=== PATIENT | female | born 1960 | race Caucasian/White ===

== ENCOUNTER 2021-12-08 05:46 | Emergency (ER) | payer OTHER, SELFPAY ==
--- NOTE | ~2021-12-08 | CT_ITS ---
EXAMINATION: CT abdomen pelvis w con DATE: 12/08/2021 08:04 INDICATION: Epigastric pain TECHNIQUE: Computed tomography (CT) of the abdomen and pelvis was performed with 75 mL Omnipaque-300 intravenous contrast. Automated exposure control and iterative reconstruction technique were employed . The dose-length product was 721.85 mGy-cm. COMPARISON: None FINDINGS: Lung bases are clear. Heart size is normal. No pericardial or pleural effusion. Small sliding-type hi atal hernia. Liver, gallbladder, spleen, pancreas, bilateral adrenal glands and kidneys are normal. B owels including the appendix are normal. Fibroid uterus with larger 3.3 cm hypodense fibroid and smal ler 1.5 cm hypodense fibroid. Bladder is normal. No free intraperitoneal gas or fluid. No pathologica lly enlarged abdominal or pelvic lymphadenopathy. Mild thoracolumbar spondylosis. Mild to moderate bi lateral hip osteoarthritis. IMPRESSION: 1. No acute intra-abdominal/pelvic process. 2. Fibroid uterus. 3. Small sliding-type hiatal hernia. Reviewed, dictated and finalized at location A.
[2021-12-08 05:53] VITALS: BP 212/101; PULSE 50; RESP 18; TEMP 36.5; O2SAT 100
[2021-12-08 06:11] LABS: Basophils Percent Auto 0.4 % (0.2-1.2); Eosinophils Absolute Auto 0.2 K/mm3 (0-0.3); Eosinophils Percent Auto 2.2 % (0-4.4); Hematocrit 39.9 % (37.0-47.0); Hemoglobin 13.1 g/dL (12.0-15.0); Immature Granulocyte Absolute 0.02 K/mm3 (0.00-0.031); Immature Granulocyte Percent A 0.3 % (0-0.5); Lymphocytes Absolute Auto 1.58 K/mm3 (0.9-3.2); Lymphocytes Percent Auto 21.4 % (18.3-44.2); Mean Corpuscular HGB Conc 32.8 g/dl (32-36); Mean Corpuscular Hemoglobin 28.4 pg (26-34); Mean Corpuscular Volume 86.4 fl (80-100); Mean Platelet Volume 9.9 fl (7.4-10.4); Monocytes Absolute Auto 0.7 K/mm3 (0.1-0.6); Monocytes Percent Auto 9.2 % (2.6-8.5); Neutrophils Absolute Auto 4.9 K/mm3 (1.3-6.7); Neutrophils Percent Auto 66.5 % (45.5-73.1); Platelet Count Result 235 k/mm3 (150-375); Red Blood Count 4.62 M/mm3 (4.2-5.4); Red Cell Distribution Width 13.3 % (11.5-14.5); White Blood Count 7.4 K/mm3 (4.5-10.0)
[2021-12-08] MEDS: SODIUM CHLORIDE 0.9% IV 1,000 ML 999 ML IV CONT (06:11)
[2021-12-08] MEDS: ONDANSETRON INJ 4 MG/2 ML VIAL IV PUSH (06:11)
[2021-12-08] MEDS: MAG HYDROX/AL HYDROX/SIMETH 30 ML UDC PO (06:14)
[2021-12-08] MEDS: LIDOCAINE HCL 2% VISC SOLN 15 ML UDC 20 ML PO (06:14)
[2021-12-08 06:22] LABS: Lactic Acid Reflex 2.1 mmol/L (0.7-2.0); Lipase 177 U/L (23-300)
[2021-12-08 06:29] LABS: Prothrombin Time 12.6 Seconds (11.1-14.7)
--- NOTE | 2021-12-08 07:28 | ED.ABDPAIN ---
HPI - Abdominal Pain General Chief Complaint: Abdominal Pain <Michael Martinez MD - Last Filed: 12/08/21 08:14> Stated Complaint: Abdominal pain <Michael Martinez MD - Last Filed: 12/08/21 08:14> Time Seen by Provider: 12/08/21 05:52 <Michael Martinez MD - Last Filed: 12/08/21 08:14> Source: patient <Michael Martinez MD - Last Filed: 12/08/21 08:14> History of Present Illness HPI narrative: Patient presents with epigastric pain. Short symptoms started this morning describes a squeezing sensation in her upper abdomen that is constant, radiates to her back improves with walking around she denies nausea denies vomiting diarrhea constipation denies any urinary symptoms fevers. Denies similar symptoms in the past. <Michael Martinez MD - Last Filed: 12/08/21 08:14> Related Data Allergies/Adverse Reactions: Allergies Allergy/AdvReac Type Severity Reaction Status Date / Time No Known Allergies Allergy Verified 12/08/21 05:59 <Michael Martinez MD - Last Filed: 12/08/21 08:14> Review of Systems Review of Systems: CONSTITUTIONAL: Denies fever, chills, or sweats. EYES: Denies visual changes, redness, or discharge. ENT: Denies rhinorrhea, congestion, sore throat, or otalgia. CARDIOVASCULAR: Denies chest pain, palpitations, or edema. RESPIRATORY: Denies cough or dyspnea. GASTROINTESTINAL: Denies vomiting, or diarrhea. GENITOURINARY: Denies dysuria or hematuria. SKIN: Denies rash or itching. MUSCULOSKELETAL: Denies back pain, joint pain, or myalgia. NEUROLOGIC: Denies headache, numbness, dizziness, or weakness. PSYCHIATRIC: Denies anxiety or depression. <Michael Martinez MD - Last Filed: 12/08/21 08:14> All systems reviewed & are unremarkable except as noted in HPI and below <Michael Martinez MD - Last Filed: 12/08/21 08:14> Exam Narrative: GENERAL: Well-appearing, well-nourished, and in no acute distress. HEAD: Normocephalic, atraumatic. EYES: PERRLA and EOMI. ENT: Nares clear, no rhinorrhea or epistaxis. Mucous membranes moist. NECK: Supple. No masses. No JVD ABDOMEN: Moderate tenderness palpation of the upper abdomen soft, nondistended EXTREMITIES: Normal range of motion. No edema. SKIN: Warm, dry, no rash. NEURO: No focal deficits. Alert and oriented x3. PSYCH: Normal mood and affect. <Michael Martinez MD - Last Filed: 12/08/21 08:14> Course Course Emergency Course: Care turned over to myself at shift change. Seen and evaluated myself. Agree with initial H&P Patient states that they are feeling much better at this time. States abdominal pain has resolved. Repeat abdominal exam shows the patient's abdomen to be soft and nontender. Discussed with patient results of workup and diagnosis. Discussed need for follow-up with primary care physician, reasons to return to the emergency department in proper use of medication. Patient understands and agrees to current treatment plan <Mahamed Diaz DO - Last Filed: 12/08/21 08:56> Reevaluation(s) Reevaluation #1: Results thus far reviewed with patient she is pending CT imaging patient signed out to Dr. Diaz pending imaging. <Michael Martinez MD - Last Filed: 12/08/21 08:14> Date: 12/08/21 <Michael Martinez MD - Last Filed: 12/08/21 08:14> Time: 08:13 <Michael Martinez MD - Last Filed: 12/08/21 08:14> Vital Signs Vital signs: Vital Signs Temperature 97.7 F 12/08/21 05:53 Pulse Rate 50 L 12/08/21 05:53 Respiratory Rate 18 12/08/21 05:53 Blood Pressure 212/101 H 12/08/21 05:53 Pulse Oximetry 100 12/08/21 05:53 Temperature 97.7 F 12/08/21 05:53 Pulse Rate 56 L 12/08/21 08:22 Respiratory Rate 18 12/08/21 08:22 Blood Pressure 176/69 H 12/08/21 08:22 Pulse Oximetry 99 12/08/21 08:22 <Michael Martinez MD - Last Filed: 12/08/21 08:14> Vital Signs Temperature 97.7 F 12/08/21 05:53 Pulse Rate 50 L 12/08/21 05:53 Respiratory Rate 18 12/08/21 05:53 B
[2021-12-08 07:38] LABS: Alanine Aminotransferase 19 U/L (6-35); Alkaline Phosphatase 100 U/L (38-126); Anion Gap 10 mmol/L (8-16); Aspartate Amino Transferase 25 U/L (14-36); Bilirubin,Total 0.2 mg/dL (0.2-1.3); Blood Urea Nitrogen 14 mg/dL (7-17); Calcium 8.6 mg/dL (8.4-10.2); Carbon Dioxide 23 mmol/L (22-30); Chloride 106 mmol/L (98-107); Estimated CRCL calculation 64 ml/min; Estimated Glomerular Filt Rate > 60; Glucose 124 mg/dL (65-110); Potassium 3.5 mmol/L (3.4-5.0); Sodium 139 mmol/L (137-145)
[2021-12-08] MEDS: MORPHINE SULFATE (*CRX) 4 MG/ML INJ IV PUSH (08:19)
[2021-12-08] MEDS: KETOROLAC 15 MG/ML VIAL (*BKC) IV PUSH (08:19)
[2021-12-08 08:22] VITALS: BP 176/69; PULSE 56; RESP 18; O2SAT 99
[2021-12-08 08:30] LABS: Appearance Urine Clear (Clear); Bilirubin Urine Negative (Negative); Color Urine Yellow (Yellow); Glucose Urine UA Negative (Negative); Ketones Urine Negative (Negative); Leukocyte Esterase Ur Negative LEU/UL (Negative); Nitrate Urine Negative (Negative); Protein Urine Negative (Negative); Urobilinogen Urine 0.2 mg/dL (<2.0); pH Urine 7.5 (5.0-9.0)
[2021-12-08 08:34] LABS: Add Urine Microscopic? YES; Blood Urine Trace-Intact (Negative)
[2021-12-08 08:36] LABS: RBC Urine 0-2 /hpf (0-2); Squamous Epithelial Cell Urine Rare /hpf (Few)
[2021-12-08 09:08] LABS: Reflex Lactic Acid Yes or No Add Lactic
== END 2021-12-08 09:11 | disposition home or self-care (01) ==
PROVIDERS: Emergency Medicine; Emergency Provider Emergency Medicine
DX: R10.10 Upper abdominal pain, unspecified (principal)
CPT/HCPCS: 36415; 74177; 80053; 81001; 83605; 83690; 85025; 85610; 96361; 96374; 96375; 99284; A9270; J1885; J2270; J2405; J7030; Q9967

== ENCOUNTER 2022-11-27 16:31 | Emergency (ER) | payer OTHER, SELFPAY ==
[2022-11-27 16:47] VITALS: BP 128/71; PULSE 76; RESP 18; TEMP 37.7; O2SAT 98
--- NOTE | 2022-11-27 16:53 | ED.URI ---
HPI - URI/Sore Throat General Chief Complaint: Upper Respiratory Infection Stated Complaint: Sore Throat,Body Aches,Shortness of Breath,COVID+ Time Seen by Provider: 11/27/22 16:54 Source: patient, family, RN notes reviewed and old records reviewed Mode of arrival: ambulatory Limitations: no limitations History of Present Illness HPI Narrative: 62year old female accompanied by spouse who presents to express care with complaints of COVID symptoms of cough,lethargy, fevers, body aches,which started on Thursday. Patient reports that they had one home COVID test left and she took it Thursday and it was positive, she reports that has had symptoms since Thursday morning. Patient reports that she has been taking Ibuprofen for her symptoms, denies any shortness of breath. Patient reports that she has been COVID and Flu vaccinated. MD elicited complaint: cough and sore throat Pertinent past history: other (Covid 19 in ) Onset (ago): day(s) (2) Pain scale (0-10): 3 Able to tolerate fluids by mouth: Yes Associated symptoms: fever, chills, myalgias, headache, rhinorrhea, nasal congestion, sore throat and cough Treatments prior to arrival: ibuprofen Related Data Home Medications Medication Instructions Recorded Confirmed atorvastatin 40 mg tablet 40 mg PO DAILY 11/27/22 11/27/22 levothyroxine 25 mcg tablet 25 mcg PO DAILY 11/27/22 11/27/22 (Synthroid) omeprazole 40 mg capsule,delayed 40 mg PO DAILY 11/27/22 11/27/22 release sertraline 50 mg tablet 50 mg PO DAILY 11/27/22 11/27/22 valacyclovir 1 gram tablet 1,000 mg PO DAILY 11/27/22 11/27/22 Allergies Allergy/AdvReac Type Severity Reaction Status Date / Time No Known Allergies Allergy Verified 11/27/22 16:56 Review of Systems Review of Systems: CONSTITUTIONAL: malaise, chills, sweats, or fever. EYES: Denies visual changes, redness, or discharge. ENT: Reports rhinorrhea, congestion, sinus pain, no otalgia positive for sore throat. CARDIOVASCULAR: Denies chest pain, palpitations, or edema. RESPIRATORY: Reports cough.? Denies dyspnea. GASTROINTESTINAL: Denies abdominal pain, nausea, vomiting, diarrhea SKIN: Denies rash or itching. MUSCULOSKELETAL: Reports myalgia. NEUROLOGIC: reports headache. All systems reviewed & are unremarkable except as noted in HPI and below PMFSH Comments At time of signature, agree with nursing past medical, surgical, social and family history. There is no relevant family history pertinent to the presenting complaint Exam Narrative: GENERAL: Well-appearing, well-nourished, and in no acute distress. HEAD: Normocephalic EYES: PERRLA, conjunctivae clear ENT: Nares clear, turbinates edematous and erythematous, clear discharge. Mucous membranes moist. TM pearly awad with dull light reflex bilaterally; no tragal tenderness. Oropharynx erythematous without lesions. Tonsils not enlarged and without exudate, no drooling, no hoarseness, no trismus, uvula midline. NECK: Supple. No lymphadenopathy CHEST: Clear to auscultation, breath sounds equal. No wheezing, rhonchi, rales, or stridor. No respiratory distress, speaks in full sentences. HEART: Regular rate and rhythm. No murmur heard. SKIN: Warm, dry, no rash. NEURO: Alert and oriented x3. PSYCH: Normal mood and affect Course Course Emergency Course: Patient is aware of diagnosis, understands and agrees to treatment plan.? Anticipatory guidance given.? Patient agrees to follow-up as directed and is aware of reasons to seek care at the emergency department. Portions of this record may have been created with voice recognition software Level of Care: Express Care Visit Vital Signs Vital signs: Vital Signs Oxygen Delivery Room Air 11/27/22 16:44 Temperature 37.7 C H 11/27/22 16:47 Pulse Rate 76 11/27/22 16:47 Respiratory Rate 18 11/27/22 16:47 Blood Pressure 128/71 11/27/22 16:47 Pulse Oximetry 98 11/27/22 16:47 Oxygen Delivery
== END 2022-11-27 17:25 | disposition home or self-care (01) ==
PROVIDERS: Emergency Provider Registered Nurse
DX: U07.1 COVID-19 (principal); E78.00 Pure hypercholesterolemia, unspecified; E03.9 Hypothyroidism, unspecified
CPT/HCPCS: 99211; G0463

== ENCOUNTER 2023-03-17 02:41 | Observation (INO) | payer OTHER, SELFPAY ==
[2023-03-17] VITALS (31 sets, daily range): BP systolic 110–178; BP diastolic 68–92; PULSE 55–96; RESP 9–20; TEMP 35.8–37.2; O2SAT 95–100; BMI 31.4
--- NOTE | ~2023-03-17 | US_ITS ---
Limited Abdominal Sonogram: Real-time sonographic imaging of the right upper quadrant was performed. Clinical History: Abnormal LFTs, cholecystitis Findings: The liver appears mildly echogenic, with no evidence of mass lesion or bile duct dilatatio n. Main portal vein demonstrates normal direction of flow. The gallbladder is partially distended, wi th multiple shadowing gallstones present. No definite gallbladder wall thickening. The common bile du ct measures 5 mm. The visualized pancreas, aorta, and IVC are unremarkable. Impression: Cholelithiasis. No definite sonographic evidence for acute cholecystitis. Consider HIDA scan as indic ated. Fatty infiltration of liver. Reviewed, dictated and finalized at location . Impression: Cholelithiasis. No definite sonographic evidence for acute cholecystitis. Consi hayden HIDA scan as indicated. Fatty infiltration of liver.
--- NOTE | ~2023-03-17 | CT_ITS ---
CT of the Abdomen and Pelvis: Indication: Abdominal pain Technique: 2.5 mm axial scans were obtained through the abdomen and pelvis following intravenous adm inistration of 100 cc of Omnipaque 350. Dose reduction technique was used on this scan by utilizing a utomated exposure control and iterative reconstruction technique. The dose-length product (DLP) was 6 34.75 mGy-cm. COMPARISON: 12/08/2021 Findings: Scans through the lung bases are unremarkable. Gallbladder is minimally distended with minimal central intrahepatic biliary prominence. Possible mil d gallbladder wall thickening. The spleen, pancreas, adrenals and kidneys are within normal limits. No evidence of aortic aneurysm. No lymphadenopathy. No bowel obstruction or bowel wall thickening. There is no evidence to suggest acute appendicitis. Images through the pelvis were performed. Urinary bladder unremarkable. Cystic lesion in the uterus v ersus left ovary, with adjacent enhancing irregular nodule is similar to prior exam (axial image 144 for example).. No ascites. Impression: Mild gallbladder wall thickening and minimal central intrahepatic biliary prominence. Correlate with LFTs. Consider MR/MRCP to evaluate for stone or other biliary obstructive process. Stable adnexal lesion with cystic component and adjacent enhancing nodularity, most likely atypical f ibroid. Reviewed, dictated and finalized at location M. Impression: Mild gallbladder wall thickening and minimal central intrahepatic biliary promi nence. Correlate with LFTs. Consider MR/MRCP to evaluate for stone or other mansi iary obstructive process. Stable adnexal lesion with cystic component and adjacent enhancing nodularity, most likely atypical fibroid.
--- NOTE | ~2023-03-17 | XR_ITS ---
EXAMINATION: XR cholangiogram surg 1st inj DATE: 03/17/2023 14:13 INDICATION: Laparoscopic cholecystectomy TECHNIQUE: 72 fluoroscopic images of the right upper quadrant were obtained during intraoperative cho langiography performed by the surgeon. I was not present in the operating room. Fluoroscopy exposure time was 12.1 seconds. COMPARISON: None. FINDINGS: No stones or stricture of the common bile duct are identified. IMPRESSION: 1. No common bile duct stone or stricture identified. Please refer to procedure note for full details . Reviewed, dictated and finalized at location A. IMPRESSION: 1. No common bile duct stone or stricture identified. Please refer to procedure note for full details.
--- NOTE | 2023-03-17 02:43 | ECG_ITS ---
Measurements Intervals [place] Rate: 53 P: 43 CA: 163 QRS: 68 QRSD: 98 T: 76 QT: 422 QTc: 398 Interpretive Statements SINUS BRADYCARDIA OTHERWISE WITHIN NORMAL LIMITS NO PREVIOUS ECG AVAILABLE FOR COMPARISON Electronically Signed On 03-17-2023 12:05:43 CDT by Mikey Luis M.D.
[2023-03-17 04:35] LABS: Basophils Percent Auto 0.2 % (0.2-1.2); Eosinophils Absolute Auto 0.1 K/mm3 (0-0.3); Eosinophils Percent Auto 0.4 % (0-4.4); Immature Granulocyte Absolute 0.04 K/mm3 (0.00-0.031); Immature Granulocyte Percent A 0.3 % (0-0.5); Lymphocytes Absolute Auto 0.96 K/mm3 (0.9-3.2); Lymphocytes Percent Auto 7.4 % (18.3-44.2); Mean Corpuscular HGB Conc 32.5 g/dl (32-36); Mean Corpuscular Hemoglobin 28.2 pg (26-34); Mean Corpuscular Volume 86.8 fl (80-100); Mean Platelet Volume 10.2 fl (7.4-10.4); Monocytes Absolute Auto 0.8 K/mm3 (0.1-0.6); Neutrophils Percent Auto 85.7 % (45.5-73.1); Platelet Count Result 234 k/mm3 (150-375); Red Blood Count 4.61 M/mm3 (4.2-5.4); Red Cell Distribution Width 13.6 % (11.5-14.5); White Blood Count 12.9 K/mm3 (4.5-10.0)
[2023-03-17 04:46] LABS: Alanine Aminotransferase 244 U/L (6-35); Albumin Level 4.2 g/dL (3.5-5.1); Alkaline Phosphatase 182 U/L (38-126); Anion Gap 7 mmol/L (8-16); Aspartate Amino Transferase 444 U/L (14-36); Bilirubin,Total 0.7 mg/dL (0.2-1.3); Blood Urea Nitrogen 13 mg/dL (7-17); Calcium 9.1 mg/dL (8.4-10.2); Carbon Dioxide 28 mmol/L (22-30); Chloride 104 mmol/L (98-107); Estimated CRCL calculation 63 ml/min; Estimated Glomerular Filt Rate > 60; Glucose 164 mg/dL (65-110); Lipase 188 U/L (23-300); Potassium 3.8 mmol/L (3.4-5.0); Sodium 139 mmol/L (137-145)
[2023-03-17] MEDS: MORPHINE SULFATE (*CRX) 4 MG/ML INJ IV PUSH (04:51)
[2023-03-17] MEDS: SODIUM CHLORIDE 0.9% IV 1,000 ML 999 ML IV CONT (04:51)
[2023-03-17] MEDS: ONDANSETRON INJ 4 MG/2 ML VIAL IV PUSH (04:51)
[2023-03-17] MEDS: PANTOPRAZOLE SODIUM IV 40 MG VIAL IV PUSH ×2 (04:51→12:14)
[2023-03-17 05:11] LABS: Troponin I < 0.012 ng/mL (0.000-0.034)
[2023-03-17 05:16] LABS: Lactic Acid Reflex 1.8 mmol/L (0.7-2.0)
--- NOTE | 2023-03-17 07:40 | ED.GENADULT ---
HPI - General Adult General Chief complaint: Abdominal Pain Stated complaint: epigastric pain Time Seen by Provider: 03/17/23 04:32 History of Present Illness HPI narrative: Patient 63-year-old female who presents emerged department chief complaint of abdominal pain. Patient reports this evening started having pain in the epigastric region reports the pain is not improved by anything patient reports that she had an episode of vomiting in the emergency department Related Data Home Medications Medication Instructions Recorded Confirmed atorvastatin 40 mg tablet 40 mg PO DAILY 11/27/22 11/27/22 levothyroxine 25 mcg tablet 25 mcg PO DAILY 11/27/22 11/27/22 (Synthroid) omeprazole 40 mg capsule,delayed 40 mg PO DAILY 11/27/22 11/27/22 release sertraline 50 mg tablet 50 mg PO DAILY 11/27/22 11/27/22 valacyclovir 1 gram tablet 1,000 mg PO DAILY 11/27/22 11/27/22 Allergies Allergy/AdvReac Type Severity Reaction Status Date / Time No Known Allergies Allergy Verified 03/17/23 04:06 Review of Systems Review of Systems: A 10 system review of systems was completed on the patient and is negative except for what is stated in the HPI. Nursing and ancillary documentation was reviewed. Exam Narrative: GENERAL: Well-appearing, well-nourished, and in no acute distress. HEAD: Normocephalic, atraumatic. EYES: PERRLA and EOMI. ENT: Nares clear, no rhinorrhea or epistaxis. Mucous membranes moist. NECK: Supple. CHEST: Clear to auscultation. No respiratory distress. HEART: Regular rate and rhythm. No murmur heard. Normal peripheral pulses. ABDOMEN: Soft, tenderness palpation the epigastric region, nondistended, normal active bowel sounds. EXTREMITIES: Normal range of motion. No edema. SKIN: Warm, dry, no rash. NEURO: No focal deficits. Alert and oriented x3. PSYCH: Normal mood and affect. Course Vital Signs Vital signs: Vital Signs Temperature 37.0 C 03/17/23 02:49 Pulse Rate 56 L 03/17/23 02:49 Respiratory Rate 16 03/17/23 02:49 Blood Pressure 153/68 H 03/17/23 02:49 Pulse Oximetry 100 03/17/23 02:49 Oxygen Delivery Room Air 03/17/23 02:49 Temperature 37.0 C 03/17/23 02:49 Pulse Rate 62 03/17/23 07:19 Respiratory Rate 15 03/17/23 07:19 Blood Pressure 114/71 03/17/23 07:19 Pulse Oximetry 99 03/17/23 07:19 Oxygen Delivery Room Air 03/17/23 04:04 Medical Decision Making MDM Narrative Medical decision making narrative: Differential diagnosis includes cholelithiasis, cholecystitis choledocholithiasis, biliary ductal dilatation obstruction, gastritis, pancreatitis Laboratory studies were obtained which showed a white count of 12.9 electrolytes showed a bilirubin of 0.7 AST was 444 ALT of 244 lipase was [address] scan of the abdomen pelvis showed Mild gallbladder wall thickening and minimal central intrahepatic biliary prominence. Correlate with LFTs. Consider MR/MRCP to evaluate for stone or other biliary obstructive process. Stable adnexal lesion with cystic component and adjacent enhancing nodularity, most likely atypical fibroid. Case was discussed with Dr. Rain who will consult Dr. Stevenson who will consult and also talked with Dr. Yoon who will admit the patient Vital Signs Vital Signs: Vital Signs Temperature 37.0 C 03/17/23 02:49 Pulse Rate 56 L 03/17/23 02:49 Respiratory Rate 16 03/17/23 02:49 Blood Pressure 153/68 H 03/17/23 02:49 Pulse Oximetry 100 03/17/23 02:49 Oxygen Delivery Room Air 03/17/23 02:49 Temperature 37.0 C 03/17/23 02:49 Pulse Rate 62 03/17/23 07:19 Respiratory Rate 15 03/17/23 07:19 Blood Pressure 114/71 03/17/23 07:19 Pulse Oximetry 99 03/17/23 07:19 Oxygen Delivery Room Air 03/17/23 04:04 Lab Data 03/17/23 04:11 03/17/23 04:11 Labs: Lab Results 03/17/23 03/17/23 Range/Units 04:11 05:01 WBC 12.9 H (4.5-10.0) K/
[2023-03-17] MEDS: SODIUM CHLORIDE 0.9% IV 1,000 ML 125 ML IV CONT (08:05)
--- NOTE | 2023-03-17 09:10 | ADMGEN ---
This patient, Ashley Devries, was admitted to 3 [facility] Surg Room 319-01. Patient/family oriented to hospital policies and general routines including ID bracelet, bed and alarms, visiting hours, pain management, procedures, bathroom and other care routines, personal items, smoking policy, room service/diet, and visiting hours. Information on how to activate the Rapid Response Team has been discussed. Patient/Family are encouraged to report perceived risks to care and to ask questions if they do not understand what they are told or what they should do.
--- NOTE | 2023-03-17 09:54 | PM.CNGS ---
Assessment and Plan Assessment and plan (1) Biliary colic: Code(s): K80.50 - Calculus of bile duct without cholangitis or cholecystitis without obstruction Status: Acute Assessment and Plan: Patient presented with epigastric abdominal pain. Found to have elevated AST, ALT, and mildly elevated alk phos. Total bilirubin normal. CT scan showed mild inflammation of the gallbladder with minimal intrahepatic biliary prominence. No gallstones seen on CT. Her abdominal pain has resolved and she has no abdominal tenderness on exam. Will get a RUQ abdominal ultrasound this morning to further evaluate the gallbladder, bile ducts, and see if there are visible gallstones. GI has also been consulted. Will discuss further treatment options once we have ultrasound results and she has been evaluated by GI. (2) Elevated liver transaminase level: Code(s): R74.01 - Elevation of levels of liver transaminase levels Status: Acute (3) GERD (gastroesophageal reflux disease): Code(s): K21.9 - Gastro-esophageal reflux disease without esophagitis Status: Acute Plan I have discussed the patient's case and plan of care with Dr. Oliver. History of Present Illness Consult details Consult date: 03/17/23 Reason for consult: other (Biliary colic, elevated LFTs) Requesting physician: Pedro Riley MD Narrative: This is a 63-year-old female who presented to the ER early this morning with complaints of epigastric abdominal pain for a few hours. She ate grilled cheese and watermelon last night for dinner and went to bed without any complaints. She woke up around midnight with severe epigastric abdominal pain. No radiating factors. She tried walking without any relief. After a few hours of pain, she decided to present to the ER for evaluation. She had associated nausea and ended up vomiting in the ER. [place] [address], total bilirubin 0.7, AST 444, ALT 244, alk-phos 182, and normal lipase. CT scan of the abdomen and pelvis showed minimal gallbladder distension with minimal central intrahepatic biliary prominence and mild gallbladder wall thickening. No CT evidence of gallstones. She was admitted and made NPO. Our service was consulted for surgical evaluation for possible cholecystitis or biliary colic with elevated liver enzymes. She is now seen on medical floor. She reports having resolution of her abdominal pain since receiving morphine about 5-6 hours ago. She is no longer having any nausea or vomiting. She denies jaundice, dark-colored urine, or acholic stools. She reports having 1 other episode of similar abdominal pain in November of 2021 that brought her into the ER at [place]. She had a CT scan at that time that showed fibroid uterus but no other significant findings and a normal gallbladder. Her LFTs at that time were normal. Review of Systems Review of Systems: All systems reviewed & are unremarkable except as noted in HPI and below Constitutional: Constitutional: Reports no additional constitutional complaints, Denies chills, Denies fatigue and Denies fever(s) Eyes: Eyes: Reports no additional eye complaints ENT: Reports system reviewed and no additional complaints, except as documented and Denies dizziness Cardiovascular: Cardiovascular: Reports no additional cardiovascular complaints, Denies chest pain and Denies leg edema Respiratory: Respiratory: Reports no additional respiratory complaints, Denies cough and Denies dyspnea Gastrointestinal: Gastrointestinal: Reports as per HPI, Reports no additional gastrointestinal complaints, Reports abdominal pain, Denies melena, Denies hematochezia, Denies change in bowel habits, Denies coffee ground emesis, Denies diarrhea, Reports nausea, Reports vomiting and Denies hematemesis Genitourinary: Genitourinary: Reports no additional female genitourinary complaints and Denies dysuria Musculoskeletal: Musculoskeletal: Reports no additional m
--- NOTE | 2023-03-17 12:18 | WPDGICN ---
Assessment and Plan Assessment and plan (1) Biliary colic: Code(s): K80.50 - Calculus of bile duct without cholangitis or cholecystitis without obstruction Status: Acute Assessment and Plan: ultrasound showed cholelithiasis, similar episode 2 years ago normal bile duct size but will get MRCP to assess if bile duct stones she is already feeling better surgery on board (2) Elevated liver transaminase level: Code(s): R74.01 - Elevation of levels of liver transaminase levels Status: Acute Assessment and Plan: monitor probably biliary source riley mrcp (3) Nausea and vomiting in adult: Code(s): R11.2 - Nausea with vomiting, unspecified Status: Acute Assessment and Plan: resolved (4) Cholelithiasis: Code(s): K80.20 - Calculus of gallbladder without cholecystitis without obstruction Status: Acute Assessment and Plan: surgery on board (5) GERD (gastroesophageal reflux disease): Code(s): K21.9 - Gastro-esophageal reflux disease without esophagitis Status: Acute Assessment and Plan: last egd in 2017 (6) Epigastric pain: Code(s): R10.13 - Epigastric pain Status: Acute GI Consult Note Consult date/time: 03/17/23 12:18 Reason for consult: elevated liver enzymes, epigastric pain HPI: Ashley Devries is a 63 year old female with gerd, hyperlipidemia who came to ER with new onset of severe epigastric abdominal pain that started around midnight, finally she came to the hospital, also had episode of nausea and vomiting. [place] [address], total bilirubin 0.7, AST 444, ALT 244, alk-phos 182, and normal lipase.? CT scan of the abdomen and pelvis showed minimal gallbladder distension with minimal central intrahepatic biliary prominence and mild gallbladder wall thickening.? Ultrasound confirmed cholelithiasis, normal bile duct size 5mm. Pain now is gone and feeling much better. She says that about 2 years ago had similar episode with ER evaluation but none since, she did not follow-up with any doctor. Review of Systems Review of Systems: All systems reviewed & are unremarkable except as noted in HPI and below Constitutional: Constitutional: Denies fatigue and Denies fever(s) Eyes: Eyes: Reports no additional eye complaints ENT: Denies dizziness Cardiovascular: Cardiovascular: Denies chest pain and Denies leg edema Respiratory: Respiratory: Denies cough and Denies dyspnea Gastrointestinal: Gastrointestinal: Reports as per HPI, Reports abdominal pain, Denies melena, Denies hematochezia, Denies change in bowel habits, Denies diarrhea, Reports nausea and Reports vomiting Genitourinary: Genitourinary: Denies dysuria Musculoskeletal: Musculoskeletal: Denies abnormal gait and Denies joint swelling Integumentary/Breasts: Skin/Breast: Denies jaundice Neurologic: Denies headache(s) and Denies numbness Psychiatric: Psychiatric: Denies anxiety [facility] Past Medical History Medical History (Updated 03/17/23 @ 12:24 by Panfilo Rice MD) Cholelithiasis Epigastric pain GERD (gastroesophageal reflux disease) Hyperlipidemia Hypothyroidism Nausea and vomiting in adult Surgical History Surgical History History of esophagogastroduodenoscopy (EGD) 2017 for dysphagia with findings of reflux esophagitis History of tubal ligation Family History Family History Sibling Gallbladder disease Social History Social History Smoking packs per day: 1.5 Smoking cigarettes per day: 30.0 Years smoked: 15 Smoking pack-years: 22.50 Smoking status: Never smoker Tobacco type: cigarettes Alcohol intake: never Substance use: never Lack of Transportation: No Lack of Food: Never True Current Housing: [facility]
--- NOTE | 2023-03-17 13:03 | WPDHPUPDATE1 ---
History and Physical Update Update Date/Time: 03/17/23 13:03 History and Physical has been reviewed, including an updated exam of the patient. There are NO changes in the patient's condition. Risks, benefits, and alternatives have been discussed and questions answered. Patient agrees to proceed with procedure.
[2023-03-17] MEDS: LACTATED RINGERS 1,000 ML 30 ML IV CONT ×2 (13:10→14:23)
--- NOTE | 2023-03-17 13:12 | WPDANESEPPF ---
Anes - Initial Pre Proc Eval Procedure: Operation Date: 03/17/23 14:00 Proposed Procedures p Laparoscopic Cholecystectomy with Intra Operative Cholangiogram, Possible Open - Pb Oliver DO Date/Time: 03/17/23 13:12 Surgeon: Lino Yoon MD Pre Op Diagnosis: Biliary Colic/Elevated Liver Transaminases Patient Data Age: 63 Gender: F Height: 1.63 m Weight: 83.2 kg Last Vital Signs Temp 36.9 C 03/17/23 09:00 Pulse 63 03/17/23 09:00 Resp 14 03/17/23 09:00 BP 138/71 03/17/23 09:00 Pulse Ox 99 03/17/23 09:00 O2 Del Method Room Air 03/17/23 09:30 Allergies Allergy/AdvReac Type Severity Reaction Status Date / Time No Known Allergies Allergy Verified 03/17/23 10:36 Home Medications Medication Instructions Recorded Confirmed Type atorvastatin 40 mg tablet 40 mg PO HS 11/27/22 03/17/23 History levothyroxine 25 mcg tablet 25 mcg PO DAILY 11/27/22 03/17/23 History (Synthroid) omeprazole 40 mg capsule,delayed 40 mg PO HS 11/27/22 03/17/23 History release sertraline 50 mg tablet 50 mg PO HS 11/27/22 03/17/23 History valacyclovir 1 gram tablet 1,000 mg PO DAILY PRN Cold Sores 11/27/22 03/17/23 History Laboratory Tests 03/17/23 03/17/23 04:11 05:01 WBC 12.9 H K/mm3 (4.5-10.0) RBC 4.61 M/mm3 (4.2-5.4) Hgb 13.0 g/dL (12.0-15.0) Hct 40.0 % (37.0-47.0) MCV 86.8 fl (80-100) MCH 28.2 pg (26-34) MCHC 32.5 g/dl (32-36) RDW 13.6 % (11.5-14.5) Plt Count 234 k/mm3 (150-375) MPV 10.2 fl (7.4-10.4) Immature Gran % (Auto) 0.3 % (0-0.5) Neut % (Auto) 85.7 H % (45.5-73.1) Lymph % (Auto) 7.4 L % (18.3-44.2) Carver % (Auto) 6.0 % (2.6-8.5) Eos % (Auto) 0.4 % (0-4.4) Baso % (Auto) 0.2 % (0.2-1.2) Lymph # (Auto) 0.96 K/mm3 (0.9-3.2) Carver # (Auto) 0.8 H K/mm3 (0.1-0.6) Eos # (Auto) 0.1 K/mm3 (0-0.3) Baso # (Auto) 0.0 K/mm3 (0.0-0.1) Abs Immat Gran (auto) 0.04 H K/mm3 (0.00-0.031) Absolute Neuts (auto) 11.0 H K/mm3 (1.3-6.7) Absolute Nucleated RBC 0.0 K/mm3 (0.0-0.012) Nucleated RBC % 0.0 % (0.0-0.2) Sodium 139 mmol/L (137-145) Potassium 3.8 mmol/L (3.4-5.0) Chloride 104 mmol/L (98-107) Carbon Dioxide 28 mmol/L (22-30) Anion Gap 7 L mmol/L (8-16) BUN 13 mg/dL (7-17) Creatinine 0.80 mg/dL (0.7-1.0) Estim Creat Clear Calc 63 ml/min Estimated GFR > 60 (59 - ) Glucose 164 H mg/dL (65-110) Lactic Acid 1.8 mmol/L (0.7-2.0) Calcium 9.1 mg/dL (8.4-10.2) Total Bilirubin 0.7 mg/dL (0.2-1.3) AST 444 H U/L (14-36) ALT 244 H U/L (6-35) Alkaline Phosphatase 182 H U/L (38-126) Troponin I < 0.012 ng/mL (0.000-0.034) Total Protein 7.0 g/dL (6.3-8.2) Albumin 4.2 g/dL (3.5-5.1) Lipase 188 U/L (23-300) Patient hx anesthesia problems: none Family hx anesthesia problems: none Results Review: All pre-operative results and documents have been reviewed as part of the pre-operative evaluation. [facility] Past Medical History Medical History (Updated 03/17/23 @ 12:24 by Panfilo Rice MD) Cholelithiasis Epigastric pain GERD (gastroesophageal reflux disease) Hyperlipidemia Hypothyroidism Nausea and vomiting in adult Surgical History Surgical History History of esophagogastroduodenoscopy (EGD) 2017 for dysphagia with findings of reflux esophagitis History of tubal ligation Family History Family History Sibling Gallbladder disease Social History Social History Smoking packs per day: 1.5 Smoking cigarettes per day: 30.0 Years
[2023-03-17] MEDS: ceFAZolin 2 GM/D5W 50 ML 2 GM/50 ML BAG IVPB (13:18)
[2023-03-17] MEDS: BUPIVACAINE/EPINEPHRINE 0.5% 50 ML VIAL 30 ML INFILTRATE (13:47)
--- NOTE | 2023-03-17 14:22 | W.PM.PROC2 ---
Procedure Note - Detailed Date of Procedure 03/17/23 Pre-op Diagnosis Acute calculous cholecystitis, Elevated Liver Transaminases Post-op Diagnosis Same Procedure Performed Laparoscopic cholecystectomy with intraoperative cholangiogram Surgeon Pb Oliver DO Anesthesia General and Local (0.5% bupivacaine) Indications This is a 63-year-old woman who presented to the emergency department this morning with right upper quadrant abdominal pain that started in the middle the night. She had 1 episode like this about a year ago. In the emergency department she was noted to have elevated white blood count and liver enzymes and CT showed evidence of acute cholecystitis. Discussions were made with the patient about treatment options and decision was made to proceed with laparoscopic cholecystectomy with cholangiogram. Findings Laparoscopic cholecystectomy with cholangiogram was performed. The gallbladder appeared slightly dilated, but did not have any significant pericholecystic adhesions. There did appear to be several small stones at the neck of the gallbladder. The cystic duct appeared normal in size. Intraoperative cholangiogram was obtained using Omnipaque contrast. There did not appear to be any filling defects within the cystic duct, common bile duct, or common hepatic duct. There were no signs of obstruction. The gallbladder was then removed and sent to the lab for pathology. Description of Procedure Procedure as well as risks, benefits, and alternatives were discussed with patient. Written consent was obtained and placed in chart prior to procedure. The patient was brought back to surgical suite. Patient was placed in supine position on operating table. Time-out was done to confirm patient and procedure. Patient was then intubated by the anesthesia department. Abdomen was prepped and draped in sterile fashion using chlorhexidine prep. 0.5% bupivacaine with epinephrine was infiltrated at each site of incision. A 5 millimeter incision was made near the umbilicus, and a 5 millimeter Optiview trocar was advanced through the abdominal layers under direct visualization. Once inside the abdominal cavity, carbon dioxide was insufflated to create a pneumoperitoneum. The camera was inserted and the abdomen was inspected. No immediate abnormalities were identified. The patient was placed in reverse Trendelenburg position and rotated slightly to the left. An 11 millimeter incision was made in the subxiphoid region, and an 11 millimeter trocar was inserted under direct visualization. Two 5 millimeter incisions were made in the right upper quadrant, and two 5 millimeter trocars were inserted under direct visualization. The gallbladder was identified and grasped at the fundus and retracted superiorly. It was then grasped at the infundibulum retracted laterally. Careful dissection around the neck of the gallbladder was performed using blunt dissection with a [place] grasper and hook electrocautery. The cystic duct was identified, and a window was created behind it. The cystic artery was also identified and a window was created behind it. The critical view of safety was identified, visualizing the cystic duct running directly into the neck of the gallbladder, and the cystic artery running directly into the wall of the gallbladder. A 5 millimeter clip gate person was then used to place 2 clips proximally and 1 clip distally on the cystic artery. It was then transected using endoscopic scissors. The Richards clamp was then placed across the neck of the gallbladder and the Richards cholangiocatheter was advanced into the distal neck of the gallbladder. Bile was aspirated and the catheter flushed with saline with ease. The patient was then flattened out in bed and fluoroscopy was used to obtain a cholangiogram using Omnipaque contrast. The images were sent to Radiology for interpretation. The patient was then placed back in reverse Trendelenburg position. A 5 mm
[2023-03-17] MEDS: hydrALAZINE HCL 20 MG/ML VIAL 10 MG IV PUSH (17:05)
--- NOTE | 2023-03-17 19:06 | PC.NURSE ---
This nurse has reviewed the charting of the orienting license pending nurse and agree with the findings
--- NOTE | 2023-03-17 20:41 | PM.IMHP ---
H&P: HPI History of Present Illness Date/Time: 03/17/23 20:41 Chief Complaint: Abdomen pain Narrative: 63 yo years old lady with history of GERD, hyperlipidemia, hypothyroidism, anxiety, present ED with a chief complaint of abdomen pain. Patient start having pain yesterday evening, associated with episodes of nausea vomiting. Patient denies chest pain, shortness of breath, headache, weakness, dysuria p.o. chills. Patient came to ED for evaluation, in the ED, patient was found to have leukocytosis white count of 12.9 electrolytes showed a bilirubin of 0.7 AST was 444 ALT of 244 lipase was [address] scan of the abdomen pelvis showed mild gallbladder wall thickening and minimal central intrahepatic biliary prominence. ER physician consulted GI and general surgeon. Patient underwent laparoscopic cholecystectomy with cholangiogram was performed under general anaesthesia.? The procedure was uncomplicated. During surgery, patient's gallbladder appeared slightly dilated, but did not have any significant pericholecystic adhesions.? Per general surgeon report, there did appear to be several small stones at the neck of the gallbladder.? The cystic duct appeared normal in size.? Intraoperative cholangiogram was obtained using Omnipaque contrast.? There did not appear to be any filling defects within the cystic duct, common bile duct, or common hepatic duct.? There were no signs of obstruction.? The gallbladder was then removed and sent to the lab for pathology. Review of Systems Review of Systems: ROS negative except above [facility] Past Medical History Medical History (Updated 03/17/23 @ 20:57 by Jam Reese MD) Cholelithiasis Epigastric pain GERD (gastroesophageal reflux disease) Hyperlipidemia Hypothyroidism Nausea and vomiting in adult Surgical History Surgical History History of esophagogastroduodenoscopy (EGD) 2017 for dysphagia with findings of reflux esophagitis History of tubal ligation Family History Family History Sibling Gallbladder disease Social History Social History Smoking packs per day: 1.5 Smoking cigarettes per day: 30.0 Years smoked: 15 Smoking pack-years: 22.50 Smoking status: Never smoker Tobacco type: cigarettes Alcohol intake: never Substance use: never Lack of Transportation: No Lack of Food: Never True Current Housing: I Have Housing Concerned About Future Housing: No Difficulty Paying Gas/Electric Bills: No Difficulty Paying for Meds: No Currently Unemployed: No Education: Associate Degree Difficulty w/ Childcare or Family Care: No Spiritual care concerns: No Meds Home Medications and Allergies Home Medications Medication Instructions Recorded Confirmed Type atorvastatin 40 mg tablet 40 mg PO HS 11/27/22 03/17/23 History levothyroxine 25 mcg tablet 25 mcg PO DAILY 11/27/22 03/17/23 History (Synthroid) omeprazole 40 mg capsule,delayed 40 mg PO HS 11/27/22 03/17/23 History release sertraline 50 mg tablet 50 mg PO HS 11/27/22 03/17/23 History valacyclovir 1 gram tablet 1,000 mg PO DAILY PRN Cold Sores 11/27/22 03/17/23 History oxycodone-acetaminophen 5 mg-325 0.5 - 1 tablet PO Q4H PRN pain #5 03/17/23 Rx mg tablet (Endocet) tabs Allergies Allergy/AdvReac Type Severity Reaction Status Date / Time No Known Allergies Allergy Verified 03/17/23 13:18 Vital Signs Vital Signs - 24 hr 03/17/23 02:49 03/17/23 04:04 03/17/23 04:04 Temperature 98.6 F Pulse Rate 56 L 57 L 57 L Respiratory Rate 16 14 16 Blood Pressure 153/68 H 167/92 H Pulse Oximetry 100 99 99 Oxygen Delivery Room Air Room Air Oxygen Flow Rate 03/17/23 04:16 03/17/23 04:17 03/17/23 04:30 Temperature Pulse Rate 56 L 55 L 62 Respiratory Rate 9 L 9 L 14 Blood Pres
[2023-03-17] MEDS: oxyCODONE HCL (*CRX) 5 MG TAB IR PO (22:13)
[2023-03-17] MEDS: SERTRALINE HCL 50 MG TABLET PO (22:14)
[2023-03-17] MEDS: PANTOPRAZOLE 40 MG TABLET PO (22:14)
[2023-03-17] MEDS: AMPICILLIN SULB 3 GM/NS 100 ML 3 GM/100 ML VIAL IVPB (22:16)
[2023-03-17 23:44] LABS: Procalcitonin 0.2 ng/mL
[2023-03-18] VITALS (7 sets, daily range): BP systolic 98–151; BP diastolic 53–75; PULSE 57–69; RESP 16–17; TEMP 36.2–37; O2SAT 95–99
[2023-03-18] MEDS: AMPICILLIN SULB 3 GM/NS 100 ML 3 GM/100 ML VIAL IVPB ×4 (03:33→21:49)
[2023-03-18] MEDS: LEVOTHYROXINE SODIUM 25 MCG TABLET PO (07:27)
[2023-03-18] MEDS: PANTOPRAZOLE 40 MG TABLET PO ×2 (08:05→21:47)
[2023-03-18 08:34] LABS: Hematocrit 36.5 % (37.0-47.0); Mean Corpuscular HGB Conc 32.9 g/dl (32-36); Mean Corpuscular Hemoglobin 28.6 pg (26-34); Mean Corpuscular Volume 86.9 fl (80-100); Mean Platelet Volume 10.5 fl (7.4-10.4); Platelet Count Result 217 k/mm3 (150-375); Red Cell Distribution Width 13.9 % (11.5-14.5)
[2023-03-18 09:07] LABS: Albumin Level 3.6 g/dL (3.5-5.1); Alkaline Phosphatase 224 U/L (38-126); Bilirubin,Total 1.1 mg/dL (0.2-1.3)
[2023-03-18 09:54] LABS: Alanine Aminotransferase 1097 U/L (6-35); Aspartate Amino Transferase 907 U/L (14-36)
--- NOTE | 2023-03-18 10:51 | PM.PNGS ---
Progress Note: A&P Assessment and Plan (1) Acute cholecystitis: Code(s): K81.0 - Acute cholecystitis Status: Acute Assessment and Plan: S/p laparoscopic cholecystectomy with IOC yesterday. Doing well postop day 1. Tolerating a low-fat diet. Surgically stable for discharge when okay with all other services. Follow-up in [address] Oliver. (2) Elevated liver transaminase level: Code(s): R74.01 - Elevation of levels of liver transaminase levels Status: Acute Assessment and Plan: Repeat labs this morning with significant increase in LFTs. Her intraoperative cholangiogram was negative. Would not expect this jump in LFTs to be related to the surgery. May need to consider other sources for elevated liver enzymes. GI following. Plan I have discussed the patient's case and plan of care with Dr. Oliver. Subjective Subjective Date/Time Seen: 03/18/23 10:51 Patient reports: no new complaints, feels better, tolerating a regular diet (Low-fat), voiding w/o difficulty and afebrile Interval history: Patient doing well this morning. Reports minimal incisional soreness, but no significant abdominal pain. Denies nausea or vomiting. Tolerating her low-fat diet. Ambulating in the room and tolerating this well. No other complaints at this time. Exam Const: General: comfortable and no acute distress GI: Inspection: non-distended and incision (incisions dry and glue intact) GI Palp: Yes Soft to palpation, Yes Tenderness to palpation present (GI) (Minimal incisional tenderness) and No Guarding due to palpation present (GI) Auscultation: normal bowel sounds Objective Data Vital Signs Vital Signs: Vital Signs - 24 hr 03/17/23 13:00 03/17/23 14:25 03/17/23 14:40 Temperature 98.9 F 97.4 F L Pulse Rate 64 86 72 Respiratory Rate 16 14 13 Blood Pressure 145/74 H 132/85 158/87 H Pulse Oximetry 97 100 100 Oxygen Delivery Room Air Simple Face Mask Simple Face Mask Oxygen Flow Rate 8 8 03/17/23 14:55 03/17/23 15:10 03/17/23 15:25 Temperature Pulse Rate 70 74 78 Respiratory Rate 14 15 20 Blood Pressure 156/86 H 153/84 H 158/87 H Pulse Oximetry 100 97 96 Oxygen Delivery Simple Face Mask Room Air Room Air Oxygen Flow Rate 8 03/17/23 15:40 03/17/23 16:00 03/17/23 16:15 Temperature 97.6 F 97.6 F Pulse Rate 69 63 96 Respiratory Rate 16 14 14 Blood Pressure 166/80 H 151/77 H 158/89 H Pulse Oximetry 100 97 96 Oxygen Delivery Room Air Oxygen Flow Rate 03/17/23 16:45 03/17/23 17:45 03/17/23 21:36 Temperature 97.6 F 97.3 F L 96.4 F L Pulse Rate 63 64 83 Respiratory Rate 14 14 18 Blood Pressure 178/90 H 135/74 127/80 Pulse Oximetry 99 96 100 Oxygen Delivery Oxygen Flow Rate 03/17/23 20:35 03/18/23 01:30 03/17/23 21:36 Temperature 97.1 F L Pulse Rate 83 61 Respiratory Rate 18 16 Blood Pressure 105/55 L Pulse Oximetry 100 95 99 Oxygen Delivery Room Air Room Air Oxygen Flow Rate 03/18/23 05:36 03/18/23 08:01 Temperature 97.3 F L 97.2 F L Pulse Rate 65 69 Respiratory Rate 16 16 Blood Pressure 98/55 L 105/53 L Pulse Oximetry 96 97 Oxygen Delivery Oxygen Flow Rate Intake/Output Intake/Output: Intake & Output 03/15/23 03/16/23 03/17/23 03/18/23 23:59 23:59 23:59 23:59 Intake Total 3040 860 Output Total 1700 400 Balance 1340 460 Meds/Results Medications: Active Medications Generic Name Dose Route Start Last Admin Trade Name Freq PRN Reason Stop Dose Admin Hydralazine HCl 10 mg 03/17/23 16:54 03/17/23 17:05 Hydralazine Hcl 20 Mg/Ml Vial IV PUSH 10 mg Q8H PRN Administration Blood Pressure - High Ampicillin Sodium/Sulbactam Sodium 3 gm in 100 mls @ 200 mls/hr 03/18/23 03:00 03/18/23 08:05 Unasyn 3 Gm/Ns 100 Ml IVPB 200 mls/hr Q6H ZAYNAB Administration Ibuprofen 400 mg 03/17/23 15:51 Ibuprofen 400 Mg Tablet PO Q6H PRN Pain Rated 1-3 Levothyroxine Sodium 25 mcg 03/18
[2023-03-18 13:10] LABS: Acetaminophen < 10 ug/mL (10-30)
[2023-03-18 13:43] LABS: Hepatitis B Surface Antigen Negative (Negative)
[2023-03-18 13:49] LABS: HAV RESULT Negative (Negative); Hepatitis B Core IgM Result Negative (Negative)
[2023-03-18 14:00] LABS: Hepatitis C Virus Antibody Negative (Negative)
[2023-03-18] MEDS: SODIUM CHLORIDE 0.9% IV 1,000 ML 999 ML IV CONT (14:56)
[2023-03-18] MEDS: IBUPROFEN 400 MG TABLET PO (14:57)
[2023-03-18] MEDS: SODIUM CHLORIDE 0.9% IV 1,000 ML 100 ML IV CONT (14:57)
[2023-03-18 15:20] LABS: Albumin Level 3.8 g/dL (3.5-5.1); Alkaline Phosphatase 219 U/L (38-126); Anion Gap 5 mmol/L (8-16); Aspartate Amino Transferase 672 U/L (14-36); Bilirubin,Total 0.7 mg/dL (0.2-1.3); Blood Urea Nitrogen 12 mg/dL (7-17); Calcium 8.4 mg/dL (8.4-10.2); Carbon Dioxide 31 mmol/L (22-30); Chloride 101 mmol/L (98-107); Estimated CRCL calculation 59 ml/min; Estimated Glomerular Filt Rate > 60; Glucose 98 mg/dL (65-110); Potassium 3.6 mmol/L (3.4-5.0); Sodium 137 mmol/L (137-145)
[2023-03-18 15:29] LABS: Alanine Aminotransferase 938 U/L (6-35)
--- NOTE | 2023-03-18 17:19 | PM.IMPN ---
Progress Note: A&P Assessment and Plan (1) Elevated liver transaminase level: Code(s): R74.01 - Elevation of levels of liver transaminase levels Status: Acute Assessment and Plan: Liver enzymes continue to rise after cholecystectomy with normal cholangiogram. Will investigate other causes such as hepatitis or persistently elevated acetaminophen levels. No indication the patient overdosed on acetaminophen. (2) Acute cholecystitis: Code(s): K81.0 - Acute cholecystitis Status: Acute Assessment and Plan: Status post laparoscopic cholecystectomy, doing well and cleared by surgery for discharge except elevated liver function testing that is outside of range expected for postoperative rise. (3) Cholelithiasis: Code(s): K80.20 - Calculus of gallbladder without cholecystitis without obstruction Status: Acute Assessment and Plan: See 2. Plan IV fluids and recheck CMP this afternoon and with morning labs. Hepatitis panel--resulted as negative Tylenol level--reports as negative GGT level--send out lab Time Spent With Patient Time with patient: 25 - 35 minutes Subjective Date/time seen: 03/18/23 17:19 Interval history: Patient had been admitted to the hospital due to acute cholecystitis. She underwent operative removal but had elevated liver enzymes. Intraoperative cholangiogram was unremarkable no obstructing ducts. Patient reports feeling better only having some mild discomfort at the site of surgical incisions. She denies nausea or vomiting. She is tolerating food okay today. She is wishing to be discharged. However, labs show continuing to rise transaminitis. Review of Systems Review of Systems: All systems reviewed & are unremarkable except as noted in HPI and below Exam Narrative: GENERAL: Generally well appearing, alert and oriented, in no apparent distress. She is pleasant and conversant in full sentences. HEENT: Pupils are equally round and briskly reactive to light. Extraocular muscles are intact. Oral mucous membranes are moist without lesions. NECK: The patient has no noted JVD. No adenopathy is appreciated. CHEST/LUNGS: Lungs are clear bilaterally without rhonchi, rales, or wheezes. There is no subcutaneous air appreciated. There is no tenderness to the chest wall. HEART: The patient has a regular rate and rhythm. No murmurs, rubs, or gallops are appreciated. Distal pulses are 2+. ABDOMEN: The patient?s abdomen is soft and nondistended. Minimal tenderness at incision sites. Bowel sounds are positive. No peritoneal signs. Incisions clean dry and intact. EXTREMITIES: The patient has no peripheral edema. There is no focal long bone tenderness or deformity. SKIN: The patient?s skin is warm and dry, without rashes or lesions. PSYCHIATRIC: The patient has normal mental status and has an appropriate affect. NEUROLOGIC: There are no gross deficits to the cranial nerves. Patient ambulates with steady gait. Objective Data Vital Signs Vital Signs: Vital Signs - 24 hr 03/17/23 17:45 03/17/23 21:36 03/17/23 20:35 Temperature 36.3 C L 35.8 C L Pulse Rate 64 83 83 Respiratory Rate 14 18 18 Blood Pressure 135/74 127/80 Pulse Oximetry 96 100 100 Oxygen Delivery Room Air 03/18/23 01:30 03/17/23 21:36 03/18/23 05:36 Temperature 36.2 C L 36.3 C L Pulse Rate 61 65 Respiratory Rate 16 16 Blood Pressure 105/55 L 98/55 L Pulse Oximetry 95 99 96 Oxygen Delivery Room Air 03/18/23 08:01 03/18/23 12:10 03/18/23 15:54 Temperature 36.2 C L 36.4 C L 36.8 C Pulse Rate 69 65 65 Respiratory Rate 16 16 17 Blood Pressure 105/53 L 133/74 138/66 Pulse Oximetry 97 99 98 Oxygen Delivery Intake/Output Intake/Output: Intake & Output 03/15/23 03/16/23 03/17/23 03/18/23 23:59 23:59 23:59 23:59 Intake Total 3040 1440 Output Total 1700 400 Balance 1340 1040 Meds/Results Medications: Active Medications Generic Name Dose Route Start L
[2023-03-18] MEDS: SERTRALINE HCL 50 MG TABLET PO (21:47)
[2023-03-19 03:28] VITALS: BP 150/80; PULSE 67; RESP 16; TEMP 36.2; O2SAT 95
[2023-03-19] MEDS: AMPICILLIN SULB 3 GM/NS 100 ML 3 GM/100 ML VIAL IVPB ×2 (03:59→08:31)
[2023-03-19] MEDS: SODIUM CHLORIDE 0.9% IV 1,000 ML 100 ML IV CONT (03:59)
[2023-03-19] MEDS: LEVOTHYROXINE SODIUM 25 MCG TABLET PO (05:41)
[2023-03-19 06:39] LABS: Basophils Percent Auto 0.3 % (0.2-1.2); Eosinophils Absolute Auto 0.1 K/mm3 (0-0.3); Eosinophils Percent Auto 1.6 % (0-4.4); Hematocrit 34.6 % (37.0-47.0); Hemoglobin 11.2 g/dL (12.0-15.0); Immature Granulocyte Absolute 0.03 K/mm3 (0.00-0.031); Immature Granulocyte Percent A 0.5 % (0-0.5); Lymphocytes Percent Auto 23.4 % (18.3-44.2); Mean Corpuscular HGB Conc 32.4 g/dl (32-36); Mean Corpuscular Hemoglobin 28.6 pg (26-34); Mean Corpuscular Volume 88.5 fl (80-100); Mean Platelet Volume 10.6 fl (7.4-10.4); Monocytes Absolute Auto 0.6 K/mm3 (0.1-0.6); Monocytes Percent Auto 9.7 % (2.6-8.5); Neutrophils Absolute Auto 4.2 K/mm3 (1.3-6.7); Neutrophils Percent Auto 64.5 % (45.5-73.1); Platelet Count Result 195 k/mm3 (150-375); Red Blood Count 3.91 M/mm3 (4.2-5.4); Red Cell Distribution Width 14.1 % (11.5-14.5); White Blood Count 6.4 K/mm3 (4.5-10.0)
[2023-03-19 06:54] LABS: Alanine Aminotransferase 700 U/L (6-35); Albumin Level 3.4 g/dL (3.5-5.1); Alkaline Phosphatase 201 U/L (38-126); Anion Gap 4 mmol/L (8-16); Aspartate Amino Transferase 323 U/L (14-36); Bilirubin,Total 0.6 mg/dL (0.2-1.3); Blood Urea Nitrogen 8 mg/dL (7-17); Calcium 8.1 mg/dL (8.4-10.2); Carbon Dioxide 31 mmol/L (22-30); Chloride 108 mmol/L (98-107); Estimated CRCL calculation 66 ml/min; Estimated Glomerular Filt Rate > 60; Glucose 92 mg/dL (65-110); Potassium 3.3 mmol/L (3.4-5.0); Sodium 143 mmol/L (137-145)
[2023-03-19 08:07] VITALS: BP 142/70; PULSE 61; RESP 16; TEMP 36.7; O2SAT 99
[2023-03-19 08:27] VITALS: O2SAT 95
[2023-03-19] MEDS: PANTOPRAZOLE 40 MG TABLET PO (08:31)
--- NOTE | 2023-03-19 11:13 | PM.DS ---
DS: Admitting Diagnosis Discharge Date 03/19/2023 Admitting Diagnosis Acute cholecystitis Cholelithiasis Elevated liver transaminase level GERD Leukocytosis Acquired hypothyroidism DS: Discharge Diagnosis Discharge Diagnosis (1) Elevated liver transaminase level: Code(s): R74.01 - Elevation of levels of liver transaminase levels Status: Acute (2) Acute cholecystitis: Code(s): K81.0 - Acute cholecystitis Status: Acute (3) Cholelithiasis: Code(s): K80.20 - Calculus of gallbladder without cholecystitis without obstruction Status: Acute DS: Summary Hospital Course Reason for hospitalization: Patient was admitted for acute cholecystitis with rising liver enzymes post cholecystectomy Hospital Course: Patient found to have gallstones leading to acute cholecystitis. Patient had laparoscopic cholecystectomy with cholangiogram which showed open ducks and no blocking stones. However, patient had elevated liver enzymes that continued to climb upon recheck. Patient received IV fluids and additional night stay of monitoring with 2 subsequent down trending checks of liver enzymes. Discussed case with business process expert who stated patient could be discharged with recheck liver enzymes in 1 week and follow-up visit with surgery and Gastroenterology. Status at Discharge Cognitive/behavioral status at discharge: awake, alert, oriented and pleasant Functional status at discharge: independent ambulation Overall status at discharge: patient is progressing back to baseline Time Spent with Patient Time attestation: Total time spent providing and/or coordinating discharge services: Time spent: Greater than 30 minutes Exam Narrative: GENERAL: Generally well appearing, alert and oriented, in no apparent distress. She is pleasant and conversant in full sentences. HEENT: Pupils are equally round and briskly reactive to light. Extraocular muscles are intact. Oral mucous membranes are moist without lesions. NECK: The patient has no noted JVD. No adenopathy is appreciated. CHEST/LUNGS: Lungs are clear bilaterally without rhonchi, rales, or wheezes. There is no subcutaneous air appreciated. There is no tenderness to the chest wall. HEART: The patient has a regular rate and rhythm. No murmurs, rubs, or gallops are appreciated. Distal pulses are 2+. ABDOMEN: The patient?s abdomen is soft and nondistended. Minimal tenderness at incision sites. Bowel sounds are positive. No peritoneal signs. Incisions clean dry and intact. EXTREMITIES: The patient has no peripheral edema. There is no focal long bone tenderness or deformity. SKIN: The patient?s skin is warm and dry, without rashes or lesions. PSYCHIATRIC: The patient has normal mental status and has an appropriate affect. NEUROLOGIC: There are no gross deficits to the cranial nerves. Patient ambulates with steady gait. DS: Data Data Completed and Pending Completed studies during hospitalization: Abdomen pelvis CT, abdomen ultrasound, operative cholangiogram Pending studies at discharge: Pending at discharge 03/17/23 13:47 Surgical [PTH] Routine Labs on day of discharge: Labs from last 24 hours 03/19/23 03/18/23 03/18/23 06:17 14:57 08:13 WBC 6.4 RBC 3.91 L Hgb 11.2 L Hct 34.6 L MCV 88.5 MCH 28.6 MCHC 32.4 RDW 14.1 Plt Count 195 MPV 10.6 H Immature Gran % (Auto) 0.5 Neut % (Auto) 64.5 Lymph % (Auto) 23.4 [place] % (Auto) 9.7 H Eos % (Auto) 1.6 Baso % (Auto) 0.3 Lymph # (Auto) 1.50 [place] # (Auto) 0.6 Eos # (Auto) 0.1 Baso # (Auto) 0.0 Abs Immat Gran (auto) 0.03 Absolute Neuts (auto) 4.2 Absolute Nucleated RBC 0.0 Nucleated RBC % 0.0 PT 14.0 INR 1.0 Sodium 143 137 Potassium 3.3 L 3.6 Chloride 108 H 101 Carbon Dioxide 31 H 31 H Anion Gap 4 L 5 L BUN 8 12 Creatinine 0.80 0.90 Estim Creat Clear Calc 66 59 Estimated GFR > 60 > 60 Gl
[2023-03-19 11:38] VITALS: BP 150/79; PULSE 58; RESP 16; TEMP 36.9; O2SAT 100
--- NOTE | 2023-03-19 12:07 | WPDGIPROGNO ---
Progress Note: A&P Assessment and Plan (1) Acute cholecystitis: Code(s): K81.0 - Acute cholecystitis Status: Acute Assessment and Plan: lap raffy and doing well (2) Elevated liver transaminase level: Code(s): R74.01 - Elevation of levels of liver transaminase levels Status: Acute Assessment and Plan: had more elevation of transaminases but coming back down today hepatitis negative normal IOC repeat liver enzymes next week and follow-up in office, she is asymptomatic (3) Epigastric pain: Code(s): R10.13 - Epigastric pain Status: Acute Assessment and Plan: resolved (4) Biliary colic: Code(s): K80.50 - Calculus of bile duct without cholangitis or cholecystitis without obstruction Status: Acute Subjective Date/time seen: 03/19/23 12:07 Interval history: she has done well after surgery, no pain. She stayed extra day because had elevated transaminases Review of Systems Review of Systems: All systems reviewed & are unremarkable except as noted in HPI and below Exam Const: General: comfortable and no acute distress HENMT: Face/Nose/Sinus: Normal nares present Eyes: General: appearance normal, both eyes and all related structures Neck: Neck: no JVD Resp: Auscultation: clear to auscultation bilaterally Cardio: Rate: regular rate Rhythm: regular rhythm GI: Inspection: non-distended GI Palp: Yes Soft to palpation and No Guarding due to palpation present (GI) Auscultation: normal bowel sounds Skin: General skin exam: normal color Neuro: Speech: normal speech Motor exam (neuro): 5/5 motor strength present throughout Extrem: General: normal to inspection Psych: Mental Status: mental status grossly normal Objective Data Vital Signs Vital Signs: Vital Signs - 24 hr 03/18/23 12:10 03/18/23 15:54 03/18/23 19:48 Temperature 97.5 F L 98.2 F 98.6 F Pulse Rate 65 65 57 L Respiratory Rate 16 17 16 Blood Pressure 133/74 138/66 151/75 H Pulse Oximetry 99 98 98 Oxygen Delivery 03/18/23 23:28 03/18/23 20:00 03/19/23 03:28 Temperature 97.3 F L 97.1 F L Pulse Rate 59 L 67 Respiratory Rate 17 16 Blood Pressure 129/70 150/80 H Pulse Oximetry 97 95 Oxygen Delivery Room Air 03/19/23 08:07 03/19/23 08:27 03/19/23 08:00 Temperature 98.1 F Pulse Rate 61 Respiratory Rate 16 Blood Pressure 142/70 H Pulse Oximetry 99 95 Oxygen Delivery Room Air Room Air 03/19/23 11:38 Temperature 98.4 F Pulse Rate 58 L Respiratory Rate 16 Blood Pressure 150/79 H Pulse Oximetry 100 Oxygen Delivery Intake/Output Intake/Output: Intake & Output 03/16/23 03/17/23 03/18/23 03/19/23 23:59 23:59 23:59 23:59 Intake Total 3040 2980 1560 Output Total 1700 407 0 Balance 1340 2573 1560 Meds/Results Medications: Active Medications Generic Name Dose Route Start Last Admin Trade Name Freq PRN Reason Stop Dose Admin Hydralazine HCl 10 mg 03/17/23 16:54 03/17/23 17:05 Hydralazine Hcl 20 Mg/Ml Vial IV PUSH 10 mg Q8H PRN Administration Blood Pressure - High Ampicillin Sodium/Sulbactam Sodium 3 gm in 100 mls @ 200 mls/hr 03/18/23 03:00 03/19/23 09:01 Unasyn 3 Gm/Ns 100 Ml IVPB Infused Q6H ZAYNAB Infusion Sodium Chloride 1,000 mls @ 100 mls/hr 03/18/23 14:45 03/19/23 03:59 Normal Saline Iv IV CONT 100 mls/hr .Q10H ZAYNAB Administration Ibuprofen 400 mg 03/17/23 15:51 03/18/23 14:57 Ibuprofen 400 Mg Tablet PO 400 mg Q6H PRN Administration Pain Rated 1-3 Levothyroxine Sodium 25 mcg 03/18/23 06:30 03/19/23 05:41 Levothyroxine Sodium 25 Mcg Tablet PO 25 mcg DAILY@0630 ZAYNAB Administration Morphine Sulfate 2 mg 03/17/23 15:51 Morphine Sulfate (*Crx) 2 Mg/Ml Inj IV PUSH Q2H PRN Pain Rated 4-6 Morphine Sulfate 4 mg 03/17/23 15:51 Morphine Sulfate (*Crx) 4 Mg/Ml Inj IV PUSH Q2H PRN Pain Rated 7-10 Ondansetron HCl 4 mg 03/17/23 1
[2023-03-20 15:52] LABS: GGT 280 U/L (3-65)
== END 2023-03-19 13:15 | disposition home or self-care (01) ==
LOC: ANHED 07:44 → ANH3MEDSUR 09:19
PROVIDERS: Nurse Practitioner; Surgery; Admitting Provider Hospitalist; Emergency Provider Emergency Medicine; Visit Provider Hospitalist
PROC: 0FT44ZZ Resection of Gallbladder, Percutaneous Endoscopic Approach (ICD-10-PCS; CPT 47562; principal; 2023-03-17 14:00)
DX: K80.10 Calculus of gallbladder with chronic cholecystitis without obstruction (principal); R00.1 Bradycardia, unspecified; R74.01 Elevation of levels of liver transaminase levels; R74.8 Abnormal levels of other serum enzymes; K21.9 Gastro-esophageal reflux disease without esophagitis; K76.0 Fatty (change of) liver, not elsewhere classified; F41.9 Anxiety disorder, unspecified; B00.9 Herpesviral infection, unspecified; E78.5 Hyperlipidemia, unspecified; E03.9 Hypothyroidism, unspecified; E66.9 Obesity, unspecified; Z68.31 Body mass index [BMI] 31.0-31.9, adult; Z79.891 Long term (current) use of opiate analgesic; Z79.899 Other long term (current) drug therapy
CPT/HCPCS: 47563; 36415; 74177; 74300; 76705; 80053; 80074; 80076; 80307; 82977; 83605; 83690; 84145; 84484; 85025; 85027; 85610; 88304; 93005; 96361; 96365; 96375; 96376; 99285; A9270; C9113; G0378; J0295; J0360; J0690; J1100; J1170; J2250; J2270; J2405; J2704; J3010; J7030; J7120; Q9967

== ENCOUNTER 2023-03-24 15:31 | Outpatient (CLI) | payer OTHER, SELFPAY ==
[2023-03-24 16:36] LABS: Anion Gap 4 mmol/L (8-16); Blood Urea Nitrogen 14 mg/dL (7-17); Carbon Dioxide 31 mmol/L (22-30); Chloride 105 mmol/L (98-107); Potassium 3.9 mmol/L (3.4-5.0); Sodium 140 mmol/L (137-145)
[2023-03-24 16:37] LABS: Alanine Aminotransferase 220 U/L (6-35); Alkaline Phosphatase 195 U/L (38-126); Aspartate Amino Transferase 34 U/L (14-36); Bilirubin,Total 0.4 mg/dL (0.2-1.3); Estimated Glomerular Filt Rate > 60; Glucose 131 mg/dL (65-110)
== END 2023-03-24 15:32 | disposition home or self-care (01) ==
PROVIDERS: Visit Provider Nurse Practitioner
DX: R74.01 Elevation of levels of liver transaminase levels (principal)
CPT/HCPCS: 36415; 80053

== ENCOUNTER 2023-06-29 00:31 | Day surgery (SDC) | payer OTHER, SELFPAY ==
[2023-06-17 09:08] VITALS: BMI 29.3
--- NOTE | 2023-06-26 10:36 | SUR.PREOP ---
Patient called regarding upcoming procedure. Reviewed preop instructions, appointment times, and procedure prep.
[2023-06-29 07:46] VITALS: BP 134/61; PULSE 71; RESP 18; TEMP 36.4; O2SAT 100
[2023-06-29] MEDS: LACTATED RINGERS 1,000 ML 150 ML IV CONT (07:55)
--- NOTE | 2023-06-29 08:17 | WPDANESEPPF ---
Anes - Initial Pre Proc Eval Procedure: Operation Date: 06/29/23 09:00 Proposed Procedures p Screening Colonoscopy - Panfilo Rice MD Date/Time: 06/29/23 08:17 Surgeon: Panfilo Rice MD Pre Op Diagnosis: neoplasm screening Patient Data Age: 63 Gender: F Height: 1.63 m Weight: 81.6 kg Last Vital Signs Temp 97.6 F 06/29/23 07:46 Pulse 71 06/29/23 07:46 Resp 18 06/29/23 07:46 BP 134/61 06/29/23 07:46 Pulse Ox 100 06/29/23 07:46 O2 Del Method Room Air 06/29/23 07:46 Allergies Allergy/AdvReac Type Severity Reaction Status Date / Time No Known Allergies Allergy Verified 06/29/23 07:45 Home Medications Medication Instructions Recorded Confirmed Type atorvastatin 40 mg tablet 40 mg PO HS 11/27/22 06/17/23 History levothyroxine 25 mcg tablet 25 mcg PO DAILY 11/27/22 06/29/23 History (Synthroid) omeprazole 40 mg capsule,delayed 40 mg PO HS 11/27/22 06/17/23 History release sertraline 50 mg tablet 50 mg PO HS 11/27/22 06/17/23 History valacyclovir 1 gram tablet 1,000 mg PO DAILY PRN Cold Sores 11/27/22 06/17/23 History ibuprofen 400 mg tablet 400 mg PO Q6H PRN Pain Rated 1-3 03/19/23 06/17/23 Rx #0 tabs Patient hx anesthesia problems: none Family hx anesthesia problems: none Results Review: All pre-operative results and documents have been reviewed as part of the pre-operative evaluation. [facility] Past Medical History Medical History (Updated 04/06/23 @ 09:20 by Vilma Lino CMA) Cholelithiasis Colon cancer screening Epigastric pain GERD (gastroesophageal reflux disease) Hyperlipidemia Hypothyroidism Nausea and vomiting in adult Surgical History Surgical History History of cholecystectomy laparoscopic cholecystectomy on 03/17/23 [facility] History of esophagogastroduodenoscopy (EGD) 2017 for dysphagia with findings of reflux esophagitis History of tubal ligation Family History Family History Sibling Gallbladder disease Social History Social History Smoking packs per day: 1.5 Smoking cigarettes per day: 30.0 Years smoked: 15 Smoking pack-years: 22.50 Smoking status: Former smoker Tobacco type: cigarettes Alcohol intake: never Substance use: never Substance use type: does not use Lack of Transportation: No Lack of Food: Never True Current Housing: I Have Housing Concerned About Future Housing: No Difficulty Paying Gas/Electric Bills: No Difficulty Paying for Meds: No Currently Unemployed: No Education: Associate Degree Difficulty w/ Childcare or Family Care: No Spiritual care concerns: No Anes - Eval Final PreProcedure Day of Procedure 06/29/23 08:17 Patient weight: normal Heart: regular rate and rhythm Lungs: clear to auscultation Airway: Mallampati scale class II Neurological: alert and oriented Last oral intake: >/= 8 hours ASA classification: II Emergent: no Anesthetic plan: proceed Anesthesia type and monitoring: general GIVS and standard monitoring Results Review: All pre-operative results and documents have been reviewed as part of the pre-operative evaluation. Informed Consent: The patient's anesthetic plan and its attendant risks and benefits were discussed with the patient/family/POA. Questions were solicited and answers provided to the satisfaction of the patient/family/POA.
--- NOTE | 2023-06-29 08:51 | PM.HPGS ---
History of Present Illness History of Present Illness Consent: Risks, benefits, and alternatives have been discussed and questions answered. Patient agrees to proceed with procedure. Chief complaint: neoplasm screening Narrative: Ashley Devries is a 63 year old female here for screening colonoscopy, last one at 51 yo Review of Systems Constitutional: Constitutional: Denies headache(s) and Denies weakness Eyes: Eyes: Denies blurry vision ENT: Reports Normal hearing present, Denies headache(s) and Denies neck pain Cardiovascular: Cardiovascular: Denies chest pain and Denies dyspnea Respiratory: Respiratory: Denies dyspnea Gastrointestinal: Gastrointestinal: Reports no additional gastrointestinal complaints Genitourinary: Genitourinary: Denies dysuria Musculoskeletal: Musculoskeletal: Denies neck pain Integumentary/Breasts: Skin/Breast: Denies dry skin Neurologic: Reports Normal hearing present, Denies headache(s) and Denies weakness Psychiatric: Psychiatric: Denies anxiety Endocrine: Endocrine: Denies change in body appearance Hematologic/Lymphatic: Hematologic/Lymphatic: Denies easy bleeding Allergic/Immunologic: Allergic/Immunologic: Denies urticaria [facility] Past Medical History Medical History (Updated 04/06/23 @ 09:20 by Vilma Lino [facility]) Cholelithiasis Colon cancer screening Epigastric pain GERD (gastroesophageal reflux disease) Hyperlipidemia Hypothyroidism Nausea and vomiting in adult Surgical History Surgical History History of cholecystectomy laparoscopic cholecystectomy on 03/17/23 [facility] History of esophagogastroduodenoscopy (EGD) 2017 for dysphagia with findings of reflux esophagitis History of tubal ligation Family History Family History Sibling Gallbladder disease Social History Social History Smoking packs per day: 1.5 Smoking cigarettes per day: 30.0 Years smoked: 15 Smoking pack-years: 22.50 Smoking status: Former smoker Tobacco type: cigarettes Alcohol intake: never Substance use: never Substance use type: does not use Lack of Transportation: No Lack of Food: Never True Current Housing: I Have Housing Concerned About Future Housing: No Difficulty Paying Gas/Electric Bills: No Difficulty Paying for Meds: No Currently Unemployed: No Education: Associate Degree Difficulty w/ Childcare or Family Care: No Spiritual care concerns: No Meds Home Medications and Allergies Home Medications Medication Instructions Recorded Confirmed Type atorvastatin 40 mg tablet 40 mg PO HS 11/27/22 06/17/23 History levothyroxine 25 mcg tablet 25 mcg PO DAILY 11/27/22 06/29/23 History (Synthroid) omeprazole 40 mg capsule,delayed 40 mg PO HS 11/27/22 06/17/23 History release sertraline 50 mg tablet 50 mg PO HS 11/27/22 06/17/23 History valacyclovir 1 gram tablet 1,000 mg PO DAILY PRN Cold Sores 11/27/22 06/17/23 History ibuprofen 400 mg tablet 400 mg PO Q6H PRN Pain Rated 1-3 03/19/23 06/17/23 Rx #0 tabs Allergies Allergy/AdvReac Type Severity Reaction Status Date / Time No Known Allergies Allergy Verified 06/29/23 07:45 Vital Signs Vital Signs - 24 hr 06/29/23 07:46 Temperature 97.6 F Pulse Rate 71 Respiratory Rate 18 Blood Pressure 134/61 Pulse Oximetry 100 Oxygen Delivery Room Air Exam Const: General: comfortable and no acute distress HENMT: Face/Nose/Sinus: Normal nares present Eyes: General: appearance normal, both eyes and all related structures Neck: Neck: no JVD Resp: Auscultation: clear to auscultation bilaterally Cardio: Rate: regular rate Rhythm: regular rhythm GI: Inspection: non-distended GI Palp: Yes Soft to palpation Skin: General skin exam: normal color Neuro: General: gait normal Speech: normal speech Extr
[2023-06-29 09:11] VITALS: BP 99/67; PULSE 55; RESP 22; O2SAT 100
[2023-06-29 09:21] VITALS: BP 101/65; PULSE 62; RESP 18; O2SAT 100
[2023-06-29 09:31] VITALS: BP 106/73; PULSE 60; RESP 18; O2SAT 100
== END 2023-06-29 09:37 | disposition home or self-care (01) ==
PROVIDERS: Visit Provider Internal Medicine Gastroenterology
PROC: 0DJD8ZZ Inspection of Lower Intestinal Tract, Via Natural or Artificial Opening Endoscopic (ICD-10-PCS; CPT 45378; principal; 2023-06-29 09:00)
DX: Z12.11 Encounter for screening for malignant neoplasm of colon (principal); K64.8 Other hemorrhoids; D12.0 Benign neoplasm of cecum; K21.9 Gastro-esophageal reflux disease without esophagitis; E78.5 Hyperlipidemia, unspecified; E03.9 Hypothyroidism, unspecified; Z90.49 Acquired absence of other specified parts of digestive tract; Z87.891 Personal history of nicotine dependence
CPT/HCPCS: 45385; 88305; J2704; J7120

== ENCOUNTER 2023-12-22 12:25 | Emergency (ER) | payer OTHER, SELFPAY ==
--- NOTE | 2023-12-22 12:30 | ED.SKABFB ---
HPI - Skin/Abscess/Foreign Bdy General Chief complaint: Skin/Abscess/Foreign Body Stated complaint: facial cellulitis Time Seen by Provider: 12/22/23 12:35 Source: patient and RN notes reviewed Mode of arrival: ambulatory Limitations: dementia History of Present Illness HPI narrative: 63-year-old female presents concern for redness, soreness to the left side of her nose. Reports that was tender yesterday. She reports she noticed when she woke up this morning it was red and slightly swollen. She denies any lesions, purulent drainage. She reports she has been having some clear nasal drainage since this started. She denies fever, body aches, chills, sweats MD complaint: other (Redness) Related Data Home Medications Medication Instructions Recorded Confirmed atorvastatin 40 mg tablet 40 mg PO HS 11/27/22 12/22/23 levothyroxine 25 mcg tablet 25 mcg PO DAILY 11/27/22 12/22/23 (Synthroid) omeprazole 40 mg capsule,delayed 40 mg PO HS 11/27/22 12/22/23 release sertraline 50 mg tablet 50 mg PO HS 11/27/22 12/22/23 valacyclovir 1 gram tablet 1,000 mg PO DAILY PRN Cold Sores 11/27/22 12/22/23 Allergies Allergy/AdvReac Type Severity Reaction Status Date / Time No Known Allergies Allergy Verified 12/22/23 12:30 Review of Systems Review of Systems: CONSTITUTIONAL: Denies malaise, chills, sweats, or fever. EYES: Denies redness, or discharge. ENT: Reports rhinorrhea. Denies congestion, swollen lips, swollen tongue CARDIOVASCULAR: Denies chest pain, palpitations, or edema. RESPIRATORY: Denies cough or dyspnea. GASTROINTESTINAL: Denies abdominal pain, nausea, vomiting SKIN: Reports redness, swelling, tenderness to the left side of the nose. Denies purulent drainage, vesicles, bullae, numbness, pain beyond proportion MUSCULOSKELETAL: Denies joint pain or myalgia. NEUROLOGIC: Denies headache. All systems reviewed & are unremarkable except as noted in HPI and below PMFSH Past Medical History Medical History (Updated 12/22/23 @ 12:42 by Aide West NP) Cholelithiasis Colon cancer screening Epigastric pain GERD (gastroesophageal reflux disease) Hyperlipidemia Hypothyroidism Nausea and vomiting in adult Surgical History Surgical History History of cholecystectomy laparoscopic cholecystectomy on 03/17/23 [facility] History of esophagogastroduodenoscopy (EGD) 2017 for dysphagia with findings of reflux esophagitis History of tubal ligation Family History Family History Sibling Gallbladder disease Social History Social History Smoking packs per day: 1.5 Smoking cigarettes per day: 30.0 Years smoked: 15 Smoking pack-years: 22.50 Smoking status: Former smoker Tobacco type: cigarettes Alcohol intake: never Substance use: never Substance use type: does not use Lack of Transportation: No Lack of Food: Never True Current Housing: I Have Housing Concerned About Future Housing: No Difficulty Paying Gas/Electric Bills: No Difficulty Paying for Meds: No Currently Unemployed: No Education: Associate Degree Difficulty w/ Childcare or Family Care: No Spiritual care concerns: No Comments At time of signature, agree with nursing past medical, surgical, social and family history. There is no relevant family history pertinent to the presenting complaint Exam Narrative: GENERAL: Well-appearing, well-nourished, and in no acute distress. HEAD: Normocephalic, atraumatic. EYES: PERRLA, conjunctivae clear ENT: Mucous membranes moist. NECK: Supple. No lymphadenopathy CHEST: Clear to auscultation. No respiratory distress. HEART: Regular rate and rhythm. SKIN: Warm, dry. Erythema, mild induration, tenderness, warmth without fluctuation, open skin noted noted to the left nare. No vesicles, bullae, necrosis, ecchymosis, cre
[2023-12-22 12:34] VITALS: BP 164/80; PULSE 66; RESP 16; TEMP 36.8; O2SAT 100
== END 2023-12-22 12:45 | disposition home or self-care (01) ==
PROVIDERS: Emergency Provider Nurse Practitioner
DX: J34.0 Abscess, furuncle and carbuncle of nose (principal); Z87.891 Personal history of nicotine dependence; K21.9 Gastro-esophageal reflux disease without esophagitis; E78.5 Hyperlipidemia, unspecified; E03.9 Hypothyroidism, unspecified
CPT/HCPCS: 99213; G0463